=== PATIENT | female | born 1950 | race Caucasian/White ===

== ENCOUNTER 2017-05-11 09:57 | Day surgery (SDC) | payer MEDICARE ==
[~2017-05-11 09:57] MED LIST: ACETAMINOPHEN 1,000 MG/100 ML VIAL IV SCH; FAMOTIDINE IN SALINE, ISO-OSM 20 MG/50 ML PIGGYBACK IV SCH; LACTATED RINGERS 1,000 ML IV SCH; LIDOCAINE HCL 1% 20 ML VIAL SUBCUT PRN; MIDAZOLAM HCL 2 MG/2 ML SYR IV PRN; ceFAZolin 1 GM in NORMAL SALINE MINI-BAG+ 100 ML IV PRN
[2017-05-11] MEDS ORDERED: NORFLURANE/HFC 245FA 1 APPLIC CAN TOPICAL ONE (10:32)
[2017-05-11] MEDS ORDERED: MIDAZOLAM HCL 2 MG/2 ML VIAL ONE (10:43)
[2017-05-11] MEDS ORDERED: FENTANYL 100 MCG/2 ML VIAL ONE (10:45)
[2017-05-11] MEDS ORDERED: BUPIVACAINE HCL/PF 0.5% 30 ML VIAL ONE (10:48)
[2017-05-11] MEDS ORDERED: LIDOCAINE HCL/PF 0.5% 50 ML VIAL ONE (10:48)
[2017-05-11] MEDS ORDERED: MORPHINE SULFATE 10 MG/ML SYR IV PRN ×2 (11:15→11:17)
[2017-05-11] MEDS ORDERED: FENTANYL 100 MCG/2 ML VIAL IV PRN ×2 (11:15→11:17)
[2017-05-11] MEDS ORDERED: ACETAMINOPHEN 1,000 MG/100 ML VIAL IV SCH (11:17)
[2017-05-11] MEDS ORDERED: LIDOCAINE HCL 1% 20 ML VIAL SUBCUT PRN (11:17)
[2017-05-11] MEDS ORDERED: ceFAZolin 1 GM in NORMAL SALINE MINI-BAG+ 100 ML IV PRN (11:17)
[2017-05-11] MEDS ORDERED: LACTATED RINGERS 1,000 ML IV SCH ×3 (11:17→12:00)
[2017-05-11] MEDS ORDERED: FAMOTIDINE IN SALINE, ISO-OSM 20 MG/50 ML PIGGYBACK IV SCH (11:17)
[2017-05-11] MEDS ORDERED: MIDAZOLAM HCL 2 MG/2 ML SYR IV PRN (11:17)
[2017-05-11 11:33] VITALS: TEMP 97
[2017-05-11 11:48] VITALS: RESP 16
--- NOTE | 2017-05-11 12:03 | OPERATIVE NOTE: Orthopedic ---
DATE OF SURGERY: 05/11/17 SURGEON: López ANESTHESIA: [place] block PREOPERATIVE DIAGNOSIS: severe right carpal tunnel syndrome POSTOPERATIVE DIAGNOSIS: same PROCEDURE PERFORMED: right open carpal tunnel release IMPLANTS: NA INDICATION FOR PROCEDURE: The patient is a 67-year-old female with a long-standing history of bilateral carpal tunnel syndrome, with the right being much more severe than the left. Her symptoms have been refractory to injection as well as long-term bracing. In addition, she has had fairly significant worsening of her symptoms in recent months. She was therefore taken to the operating room for right carpal tunnel release. SUMMARY: After informed consent was obtained, the patient was taken to the operating room where she was placed in the supine position under Seaford block anesthesia. After adequate anesthesia was achieved, the right hand and upper extremity were prepped and draped in usual sterile fashion, and a longitudinal incision was performed just ulnar to the long palmar crease. A self-retaining retractor was placed, and the underlying soft tissue was sharply dissected under tension. The dissection was carried through the palmar fascia, exposing the underlying transverse carpal ligament. Once again the ligament was held under tension using a self-retaining retractor, and then the distal portion of the ligament was released by applying gentle downward pressure with a scalpel. This allowed passage of a freer elevator beneath the ligament, and the remainder of the ligament was incised under the freer elevator. An empty scalpel handle was then placed into the incision and guided proximally in order to protect the underlying structures. The distal forearm fascia was then released on top of the scalpel handle using a tenotomy scissor. The nerve was then inspected and noted to be free of any gross pathology. Likewise the motor branch was noted to be free of any compression. The wound was then irrigated copiously with sterile saline, and hemostasis was achieved using bipolar electrocautery. The skin was then closed using 4-0 nylon in an interrupted horizontal mattress fashion, and the patient was placed into a sterile gauze dressing and well- padded volar splint. She tolerated the procedure well and was taken to the recovery room in stable condition. ESTIMATED BLOOD LOSS: minimal FLUIDS: 500 mL's TOURNIQUET TIME: 28 minutes
[2017-05-11 12:43] VITALS: BP 154/84; PULSE 54; O2SAT 92
--- NOTE | 2017-05-23 18:23 | HISTORY & PHYSICAL ---
History of Present Illness (Rodrigo Jones MD; 04/29/2017 10:11 AM) Patient words: Pre op eval for Rt. carpal tunnel release. The patient is a 67 year old female for a pre-op physical. The patient feels well with no complaints. There have been no problems with general anesthesia or blood/blood products. Planned anesthesia includes local anesthesia. Cardiac risk factors include: hypertension, hyperlipidemia and diabetes. Note for "Pre OP Evaluation": 1. Pre-op for Right carpal tunnel release. Surgery with Dr. Dawn, unscheduled currently. METs4-8 w/ ambulates stairs all day for work no dyspnea/CP as well walks 1mile/ day Tolerates anesthesia without issue and last surgery was 1 year ago (knee) No bleeding/clotting issues. No family h/o bleeding/clotting/anesthesia issues 2. Diabetes: Last A1C 6.3. Doesn't check blood sugars because A1C is good 3. HTN: 132/80 today. Pt checks monthly. 4. Weight: Holding about the same--no significant gains or losses recently. Has been walking more--1/day, 1 mile. 5. Hypothyroid: No weight gain, no cold intolerance, good appetite. 6. Hyperlipidemia: No muscle aches, no noticed jaundice. Allergies (Bekah Alva LPN; 04/29/2017 9:12 AM) No Known Drug Allergies Social History (Bekah Alva LPN; 04/29/2017 9:12 AM) Residency Status [employer] [place] resident Exercise Walks some. No Drug Use no marijuana Number of Children 2 grown. Live in [facility] (son and daughter). Five grandchildren. all well 2016 Current work status Manages a resort ([employer] Alcohol Use Drinks Rarely. Vehicle Driving Yes. Marital status ([place]) Tobacco Use Never smoker. Medication History (Bekah Alva LPN; 04/29/2017 9:12 AM) Simvastatin (20MG Tablet, 1 Oral daily, Taken starting 11/11/2016) Active. Aspirin (81 Tablet, 1 Oral daily) Active. AmLODIPine Besylate (5MG Tablet, 1 (one) Oral daily, Taken starting 02/11/2017 ) Active. Atenolol (50MG Tablet, 1 (one) Oral two times daily, Taken starting 11/11/2016 ) Active. Valsartan-Hydrochlorothiazide (320-25MG Tablet, 1 Oral daily, Taken starting ) Active. HydrALAZINE HCl (25MG Tablet, 1 Oral two times daily, Taken starting 02/18/2017 ) Active. Levothyroxine Sodium (100MCG Tablet, 1 (one) Oral daily, Taken starting 2016) Active. GlipiZIDE ER (5MG Tablet ER 24HR, 1 (one) Oral daily, Taken starting 01/13/2017 ) Active. GlyBURIDE (2.5MG Tablet, 1 (one) Tablet Oral daily, Taken starting 07/08/2016) Active. MetFORMIN HCl ER (500MG Tablet ER 24HR, 1 (one) Tablet ER 24HR Oral daily, Taken starting 03/09/2017) Active. Krill Oil (1000MG Capsule, 1 Oral daily) Active. Multivitamins (one Oral daily) Active. Medications Reconciled Diagnostic Studies History (Rodrigo Jones MD; 04/29/2017 10:12 AM) EKG004/29/2017 Within Normal Limits. NSR, Normal EKG Vitals (Bekah Alva LPN; 04/29/2017 9:12 AM) 04/29/2017 9:10 AM Weight: 226.4 lb Height: 64.25in Body Surface Area: 2.07 m Body Mass Index: 38.56 kg/m Temp.: 97.8F(Oral) Pulse: 71 (Regular) Resp.: 16 (Unlabored) P.OX: 91% (Room air) BP: 132/80 (Sitting, Left Arm, Large) Ht taken without shoes. Physical Exam (Griselda Mancia; 04/29/2017 10:03 AM) General General Appearance-Well Appearing. Eye Ophthalmology Exam External Eye Exam - Bilateral - Normal. Fundi - Bilateral-Normal. ENMT Ears Normal Exam - TM's normal. External Auditory Canal - Bilateral - Clear. Chest and Lung Exam Auscultation Breath sounds - Clear and Symmetric throughout. Adventitious sounds - No Adventitious sounds. Cardiovascular Auscultation Rhythm - Regular. Murmurs & Other Heart Sounds - Auscultation of the heart reveals - No Murmurs. Abdomen Palpation/Percussion Palpation and Percussion of the abdomen reveal - Soft, Non Tender and No hepatosplenomegaly. Musculoskeletal Upper Extremity Hand/Wrist: Wrist: Inspection and Palpation - Examination reveals - Note: pt with carpal tunnel syndrome. Lower Extremity Ankle/Foot: Ankle: Inspection and Palpation - Swelling - localized, (R). Assessment & Plan (Rodrigo Jones MD; 04/29/2017 10:15 AM) Preop exam for internal medicine (Z01.818) Story: Pre-op eval for right carpal tunnel release, currently unscheduled, with Dr. Dawn. Impression: Pt. medically optimized for surgery. Metabolic equivalent 4-8. Discussed holding aspirin and all other NSAIDs for 5 days before surgery. Pt can take BP meds the morning of surgery with a sip of water, depending on timing of surgery, certain diabetic medications may need to be held. Pt denies any bleeding or clotitng issues. 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 Foot exam is normal, and blood pressure is improved. If the patient was able to lose a lot of weight, she might not need diabetic treatment at all, and I have told her that. Since the patient is having diarrhea and bloating with short acting Metformin, and I am reluctant to discontinue this medication, we agreed on a trial of extended release, to see if that would be better tolerated. Hyperlipidemia with target LDL less than 100 (E78.5) Impression: Stable and good results with medications, continue same. Essential hypertension with goal blood pressure less than 130/80 (I10) Impression: Blood pressure has improved, and the patient's blood pressure cuff was assessed today, and did seem to read somewhat higher than ours. [place] so I did not make further adjustment to her medications. Reassess on return. Note:Medically optimized for anesthesia review. Low risk Patient seen by Yolanda and now scheduled for surgery next week. Signed by Rodrigo Jones MD (04/29/2017 10:15 AM) IMER
--- NOTE | 2017-05-23 18:25 | PREOPERATIVE H&P ---
History of Present Illness (Isiah Dawn MD; 04/19/2017 9:22 AM) The patient is a 67 year old female. The patient is here for a follow-up with bilateral carpal tunnel syndrome, right much worse than left. At her last visit in October she underwent injection on both sides which helped her until about March. She now has recurrent symptoms, but her symptoms are also more persistent than when we saw her last. Allergies (Yolanda Price RN; 04/19/2017 9:08 AM) No Known Drug Allergies Family History (Yolanda Price RN; 04/19/2017 9:08 AM) No Significant Family Ocular History Father Father with pancreatitis (gallstone), underlying COPD. 79. Mother Mother with heart failure at 79, had a history of DM, Hypertension , CAD with a history of PR x 2. Brother 2 Brother age 67, hypertension, hypothyroid. 2016 Brother 1 Brother age 69, overweight. 2016 Social History (Yolanda Price RN; 04/19/2017 9:08 AM) Alcohol Use Drinks Rarely. Tobacco Use Never smoker. Medication History (Yolanda Price RN; 04/19/2017 9:08 AM) Aspirin (81 Tablet, 1 Oral daily) Active. GlyBURIDE (2.5MG Tablet, 1 (one) Tablet Oral daily, Taken starting 07/08/2016) Active. Simvastatin (20MG Tablet, 1 Oral daily, Taken starting 11/11/2016) Active. Atenolol (50MG Tablet, 1 (one) Oral two times daily, Taken starting 11/11/2016 ) Active. Valsartan-Hydrochlorothiazide (320-25MG Tablet, 1 Oral daily, Taken starting ) Active. Levothyroxine Sodium (100MCG Tablet, 1 (one) Oral daily, Taken starting 2016) Active. GlipiZIDE ER (5MG Tablet ER 24HR, 1 (one) Oral daily, Taken starting 01/13/2017 ) Active. AmLODIPine Besylate (5MG Tablet, 1 (one) Oral daily, Taken starting 02/11/2017 ) Active. HydrALAZINE HCl (25MG Tablet, 1 Oral two times daily, Taken starting 02/18/2017 ) Active. MetFORMIN HCl ER (500MG Tablet ER 24HR, 1 (one) Tablet ER 24HR Oral daily, Taken starting 03/09/2017) Active. Krill Oil (1000MG Capsule, 1 Oral daily) Active. Multivitamins (one Oral daily) Active. Medications Reconciled Vitals (Yolanda Price RN; 04/19/2017 9:08 AM) 04/19/2017 9:06 AM Weight: 224.6 lb Height: 63.5in Body Surface Area: 2.04 m Body Mass Index: 39.16 kg/m Temp.: 97.7F Pulse: 72 (Regular) Resp.: 16 (Unlabored) BP: 146/82 (Sitting, Left Arm, Standard) Physical Exam (Isiah Dawn MD; 04/19/2017 9:22 AM) Musculoskeletal Physical examination today reveals that she has no swelling in her digits, and full range of motion. She has no thenar atrophy, and she does have sensation intact throughout to light touch although she has persistent paresthesias in the median nerve distribution on the right. She has a negative Tinel's this time , but a positive Phalen's. Assessment & Plan (Isiah Dawn MD; 04/19/2017 9:23 AM) Bilateral carpal tunnel syndrome (G56.03) Assessment: Persistent bilateral carpal tunnel syndrome, right more symptomatic than left. Plan: We again discussed treatment options, and at this point the patient would like to proceed with right carpal tunnel release. We will therefore schedule her operation, and then plan on performing her preoperative evaluation on the date of surgery. Signed by Isiah Dawn MD (04/19/2017 9:24 AM) IMER
== END 2017-05-11 12:55 | disposition home or self-care (01) ==
LOC: SDS 09:57
PROVIDERS: ATTEND Orthopaedic Surgery
DX: G56.01 Carpal tunnel syndrome, right upper limb (principal); E11.9 Type 2 diabetes mellitus without complications; I10 Essential (primary) hypertension; E03.9 Hypothyroidism, unspecified; E78.5 Hyperlipidemia, unspecified; Z79.899 Other long term (current) drug therapy
CPT/HCPCS: 64721; J0690; J2001; J2250; J3010